=== PATIENT | male | born 1965 | race Caucasian/White ===

== ENCOUNTER → 2016-11-26 | Outpatient (CLI) | payer MEDICAID, MEDICARE | END | disposition home or self-care (01) | LOC: PCVCCLINIC 13:49 | PROVIDERS: ATTEND Nuclear Medicine Nuclear Cardiology | DX: I87.2 Venous insufficiency (chronic) (peripheral) (principal); I87.319 Chronic venous hypertension (idiopathic) with ulcer of unspecified lower extremity; I10 Essential (primary) hypertension; M54.9 Dorsalgia, unspecified | CPT/HCPCS: G0463 ==